=== PATIENT | female | born 1940 | race Caucasian/White ===

== ENCOUNTER → 2019-01-27 15:58 | Outpatient (CLI) | payer MEDICARE, SELFPAY ==
--- NOTE | 2019-01-27 | DI.RAD.S_ITS ---
PROCEDURE: XR HIP W PEL IF DONE LT 2V INDICATIONS: Pelvic Pain, clinically reported known fracture. TECHNIQUE: AP pelvis with lateral view(s) of the left hip(s). COMPARISON: [facility], CR, HIP 2V RIGHT, 01/10/2009, 10:01. FINDINGS: Bones: Fracture of the left superior and inferior pubic ramus. Soft tissue anchors projecting in the pubic bodies bilaterally. No suspicious bony lesions. Moderate bilateral hip degeneration. Lower lumbar spondylosis and facet arthropathy with partially visualized lateral curvature. Soft tissues: The visualized bowel gas pattern is normal. No suspicious soft tissue calcifications. IMPRESSION: Fractures of the left superior and inferior pubic ramus. Dictated by: Tyler Narvaez M.D. on 01/27/2019 at 17:01 Approved by: Tyler Narvaez M.D. on 01/27/2019 at 17:06
== END ==
PROVIDERS: PCP Specialist; Visit Provider Internal Medicine
DX: R10.2 Pelvic and perineal pain (principal); M16.0 Bilateral primary osteoarthritis of hip; S32.592D Other specified fracture of left pubis, subsequent encounter for fracture with routine healing
CPT/HCPCS: 73502

== ENCOUNTER → 2019-01-27 15:58 | Outpatient (CLI) | payer SELFPAY | DX: R10.2 Pelvic and perineal pain (principal); M16.0 Bilateral primary osteoarthritis of hip; S32.592D Other specified fracture of left pubis, subsequent encounter for fracture with routine healing ==

== ENCOUNTER 2021-09-23 18:44 | Emergency (ER) | payer MEDICARE, SELFPAY ==
[2021-09-23 19:00] VITALS: BP 111/61; PULSE 65; RESP 18; TEMP 36.6; O2SAT 97
--- NOTE | 2021-09-23 19:00 | DI.CT.S_ITS ---
PROCEDURE: CT HEAD/BRAIN WO CON INDICATIONS: fall TECHNIQUE: Noncontrast 4.5 mm thick angled axial sections acquired from the foramen magnum to the vertex, with coronal and sagittal reformats. For radiation dose reduction, the following was used: automated exposure control, adjustment of mA and/or kV according to patient size. COMPARISON: [facility], CT, HEAD WITHOUT CONTRAST, 10/22/2011, 15:13. FINDINGS: Image quality: Excellent. CSF spaces: Basal cisterns are patent. No extra-axial fluid collections. The ventricles are symmetric in size and shape. Brain: No intracranial bleeds or masses. There is cerebral volume loss for age, with resultant ventricular and sulcal prominence. There are periventricular and deep white matter chronic small vessel ischemic changes. There is intracranial internal carotid artery atherosclerosis. Skull and face: Small left posterior parietal subcutaneous hematoma and swelling. Calvarium and visualized facial bones appear intact, without suspicious lesions. Sinuses: Visualized sinuses and mastoids are clear. IMPRESSION: 1. No CT evidence of acute intracranial hemorrhage or chronic hematoma. 2. Age-appropriate cerebral cortical volume loss and chronic microvascular ischemic changes. 3. Small left posterior parietal soft tissue hematoma without underlying fracture. Dictated by: Kathy Laureano M.D. on 09/23/2021 at 19:33 Approved by: Kathy Laureano M.D. on 09/23/2021 at 19:35
--- NOTE | 2021-09-23 19:18 | DI.CT.S_ITS ---
PROCEDURE: CT CERVICAL SPINE WO CON INDICATIONS: fall, cervical midline pain TECHNIQUE: Noncontrast 3 mm thick sections acquired from the skull base to the T4 level. Sagittal and coronal reformats were then constructed. For radiation dose reduction, the following was used: automated exposure control, adjustment of mA and/or kV according to patient size. COMPARISON: [facility], CT, C-SPINE WITHOUT CONTRAST, 10/22/2011, 15:13. [facility], CT, CT HEAD/BRAIN WO CON, 09/23/2021, 19:05. FINDINGS: Image quality: Excellent. Bones: No fractures or dislocations. Visualized superior ribs are intact. Levoconvex cervical thoracic scoliotic curvature can be seen on the coronal images. There is minimal anterolisthesis seen at C3-C4 and minimal retrolisthesis seen at C4-C5. There is minimal anterolisthesis seen at C7-T1. Accentuated thoracic kyphosis is seen. Focal degenerative change is seen involving the C1-C2 interface anteriorly. There is at least moderate disc space narrowing at C3-C4, with moderate to severe disc space narrowing at C4-C5, C5-C6, and C6-C7. Sternotomy wires are partially seen. Soft tissues: Within the upper lobes, mild poorly defined/ground-glass opacities are seen. Atherosclerotic calcification is noted. Prevertebral soft tissues are normal in thickness. No paravertebral hematomas. No apical pneumothoraces. There is a right-sided pacer device. IMPRESSION: No acute fractures are seen. Multiple levels of prominent degenerative change can be seen. Mild poorly defined opacities are seen, including ground-glass opacities. Please correlate with infection, including COVID pneumonia. Differential diagnosis would also mild pulmonary edema, however. Incidental note is made of: Atherosclerotic calcification Right-sided pacer device Levoconvex cervical thoracic scoliotic curvature Dictated by: Phil Galeano M.D. on 09/23/2021 at 19:05 Approved by: hPil Galeano M.D. on 09/23/2021 at 19:08
--- NOTE | 2021-09-23 19:22 | ED.GENADULT ---
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 She states she was on the fairy and when the deck moved that she fell backward landing on the occiput. She had a ?big goose egg? but was able to get up, walk to her car and walk into the emergency department with minimal assistance. She appears to be at her baseline level of alertness. There is no abrasion or contusion. She initially had not complained of other pain but on physical exam she does note some midline cervical spine tenderness. She notes no recent chest pain, palpitations, dyspnea, vomiting, fevers, abdominal pain. She does have chronic diarrhea for which she takes gemfibrozil. Related Data Home Medications Medication Instructions Recorded Confirmed Betamethasone Dipropionate, 0.05 TP BID #0 10/22/11 (#DIPROLENE) Fluoxetine Hydrochloride (PROZAC) 30 mg PO QDAY #0 10/22/11 WARFARIN SODIUM (COUMADIN) 1.5 mg PO #0 10/22/11 atenolol 25 mg tablet 25 mg PO BID #0 10/22/11 atorvastatin 20 mg tablet (Lipitor) 20 mg PO HS #0 10/22/11 cetirizine 10 mg tablet 10 mg PO Q DAY #0 10/22/11 cholestyramine (with sugar) 4 gram 4 gm PO Q DAY #0 10/22/11 powder for susp in a packet (Questran) darifenacin 7.5 mg tablet,extended 7.5 mg PO Q DAY #0 10/22/11 release 24 hr (Enablex) estradiol 10 mcg vaginal tablet 10 mcg VG TWICE WEEKLY #0 10/22/11 (Vagifem) gemfibrozil 600 mg tablet 600 mg PO BIDAC #0 10/22/11 lisinopril 10 1 tab PO QDAY #0 10/22/11 mg-hydrochlorothiazide 12.5 mg tablet lorazepam 1 mg tablet 1 mg PO HSP #0 10/22/11 omeprazole 20 mg capsule,delayed 20 mg PO QDAY@0600 #0 10/22/11 release ondansetron HCl 4 mg tablet 4 mg PO Q8HP #0 10/22/11 Allergies Allergy/AdvReac Type Severity Reaction Status Date / Time CODEINE Allergy Unknown Uncoded 03/30/19 12:13 NIACIN Allergy Unknown Uncoded 03/30/19 12:13 SULFA Allergy Unknown Uncoded 03/30/19 12:13 Review of Systems Review of Systems Narrative: Remainder of complete review of systems is otherwise unremarkable except for that included in the HPI. Patient History Medical History Anticoagulated on Coumadin Atrial fibrillation Depression Hyperlipidemia Hypertension Tetralogy of Fallot Exam Initial Vital Signs Initial Vital Signs: Vital Signs Temperature 97.9 F 09/23/21 19:00 Pulse Rate 65 09/23/21 19:00 Respiratory Rate 18 09/23/21 19:00 Blood Pressure 111/61 09/23/21 19:00 Pulse Oximetry 97 09/23/21 19:00 General: Very frail appearing 81-year-old woman and no acute distress. Able to participate with complete exam and speak in fluent sentences HEENT: Moist mucous membranes, normal sclera with reactive pupils, healing contusion over the left side of her forehead just above the brow with old bruising over the malar eminence left side. Minor contusion to the posterior portion of her scalp without any abrasions or bleeding. No tenderness. No tenderness with skull manipulation to suggest skull fracture Neck: No JVD, minor tenderness midline to palpation C1 234 Respiratory: Lungs are clear to auscultation, no wheezing no rales no rhonchi. Full and symmetrical air movement Chest: No tenderness with palpation of thoracic spine or chest wall. No clavicular tenderness Cardiac: Irregular with 5/6 systolic murmur Abdomen: Soft, cachectic, nontender, good bowel tones, no flank pain Skin: Frail, Warm and dry, no rashes Neurologic: Grossly neurologically intact with no obvious asymmetries or abnormalities Extremities: No trauma, well perfused Psych: Cooperative, slightly forgetful, poor overall insight Course Orders Ordered: ED Orders 09/23/21 19:00 CT head/brain wo con Stat 09/23/21 19:18 CT cervical spine wo con Stat 09/23/21 19:19 COVID19 -Nasal swab/Pre-Proc Stat 09/23/21 19:30 Complete Blood Count AUTO DIFF Stat Comprehensive Metabolic Panel Stat Prothrombin Time INR Stat Troponin I Stat Vital Signs Vital signs: Vital Signs - 8 hr 09/23/21 19:00 Temperature 97.9 F Pulse Rate 65 Respiratory Rate 18 Blood Pressure 111/61 Pulse Oximetry 97 Medical Decision Making Lab Data Result diagrams: 09/23/21 19:30 09/23/21 19:30 Labs: Lab Results 09/23/21 09/23/21 09/23/21 Range/Units 19:30 19:30 19:30 WBC 4.8 (4.5-11.0) X10^3/uL RBC 3.45 L (4.0-5.2) X10^6/uL Hgb 9.8 L (12.0-16.0) g/dL Hct 30.9 L (36-46) % MCV 89.6 (80-100) fL MCH 28.5 (26-34) PG MCHC 31.9 (30-36) % RDW 15.4 H (11.6-14.8) % Plt Count 344 (150-400) X10^3/uL Neut % (Auto) 52.6 (50-75) % Lymph % (Auto) 30.3 (25-40) % [place] % (Auto) 12.5 (3-14) % Eos % (Auto) 3.3 (2-4) % Baso % (Auto) 1.3 (0-2) % Neut # (Auto) 2500 (7187-8920) /uL Lymph # (Auto) 1500 (5563-3970) /uL [place] # (Auto) 600 (0-900) /uL Eos # (Auto) 200 (0-450) /uL Baso # (Auto) 100 (0-100) /uL PT 23.7 H (10.1-12.7) SECONDS INR 2.1 H (0.9-1.3) Sodium 136 L (137-145) mmol/L Potassium 4.9 (3.4-5.1) mmol/L Chloride 104 (98-107) mmol/L Carbon Dioxide 21 L (22-32) mmol/L BUN 18 H (7-17) mg/dL Creatinine 0.92 (0.52-1.04) mg/dL Estimated GFR 58.7 L (>60) mL/min BUN/Creatinine Ratio 19.6 (6-22) Glucose 82 (80-110) mg/dL Calcium 10.3 H (8.4-10.2) mg/dL Total Bilirubin 0.7 (0.2-1.3) mg/dL AST 33 (14-36) IU/L ALT 14 (<35) IU/L Alkaline Phosphatase 125 (38-126) U/L Troponin I 0.027 (0.01-0.034) ng/mL Total Protein 7.5 (6.3-8.2) g/dL Albumin 4.4 (3.5-5.0) g/dL Globulin 3.1 (1.7-4.1) g/dL Albumin/Globulin Ratio 1.4 (1.0-2.8) Imaging Data CT - cervical spine: Radiologist's Impression: FINDINGS:? Image quality:? Excellent.? ? Bones:? No fractures or dislocations.? Visualized superior ribs are intact.? ? Levoconvex cervical thoracic scoliotic curvature can be seen on the coronal images.? There is minimal anterolisthesis seen at C3-C4 and minimal retrolisthesis seen at C4-C5.? There is minimal anterolisthesis seen at C7-T1.? Accentuated thoracic kyphosis is seen. ? Focal degenerative change is seen involving the C1-C2 interface anteriorly. ? There is at least moderate disc space narrowing at C3-C4, with moderate to severe disc space narrowing at C4-C5, C5-C6, and C6-C7. ? Sternotomy wires are partially seen. ? Soft tissues:? Within the upper lobes, mild poorly defined/ground-glass opacities are seen. ? Atherosclerotic calcification is noted.? ? Prevertebral soft tissues are normal in thickness.? No paravertebral hematomas.? No apical pneumothoraces.? There is a right-sided pacer device. ? ? IMPRESSION:? No acute fractures are seen. ? Multiple levels of prominent degenerative change can be seen. ? Mild poorly defined opacities are seen, including ground-glass opacities.? Please correlate with infection, including COVID pneumonia.? Differential diagnosis would also mild pulmonary edema, however. ? ? ? Incidental note is made of: Atherosclerotic calcification Right-sided pacer device Levoconvex cervical thoracic scoliotic curvature ? Dictated by: Phil Galeano M.D. on 09/23/2021 at 19:05 ? ? CT scan - head: Radiologist's Impression: FINDINGS:? Image quality:? Excellent.? ? CSF spaces:? Basal cisterns are patent.? No extra-axial fluid collections.? The ventricles are symmetric in size and shape.? ? Brain:? No intracranial bleeds or masses.? There is cerebral volume loss for age, with resultant ventricular and sulcal prominence.? There are periventricular and deep white matter chronic small vessel ischemic changes.? There is intracranial internal carotid artery atherosclerosis.? ? Skull and face:? Small left posterior parietal subcutaneous hematoma and swelling.? Calvarium and visualized facial bones appear intact, without suspicious lesions.? ? Sinuses:? Visualized sinuses and mastoids are clear.? ? IMPRESSION:? ? 1. No CT evidence of acute intracranial hemorrhage or chronic hematoma. ? 2. Age-appropriate cerebral cortical volume loss and chronic microvascular ischemic changes.? ? 3. Small left posterior parietal soft tissue hematoma without underlying fracture.? ? ? Dictated by: Kathy Laureano M.D. on 09/23/2021 at 19:33 ? ? Approved by: Kathy Laureano M.D. on 09/23/2021 at 19:35 ? ? ? ADDENDUM: ? This case was reviewed at the request of Dr. Alexa Harris and discussed by telephone at 7:14 p.m. [place] time on September 23, 2021.? ? Concordant findings discussed. ? Along the posterior aspect of the right posterior fossa, as on series 2, image 9, there is thickened tentorium, yet without hemorrhage.? This is better seen on the accompanying sagittal and coronal images through the same area. ? ? Dictated by: Phil Galeano M.D. on 09/23/2021 at 19:14 ? ? [facility] Narrative Medical decision making narrative: 81-year-old woman anticoagulated on Coumadin with a fall hitting the back side of her head with the small hematoma but no intracranial bleed or bony injury of the skull or cervical spine. She lives in the [facility] and is coming over to be available for an appointment at [place] tomorrow regarding a head injury with bleed a month ago. Will make the CT scans done today available to [facility] should the need them for her outpatient follow-up tomorrow. Labs are reassuring, patient is doing well complaining of no pain and is safe for discharge home Discharge Plan Departure Patient Disposition: Home Clinical Impression: Fall Qualifiers: Encounter type: initial encounter Qualified Code(s): W19.XXXA - Unspecified fall, initial encounter Contusion of head Qualifiers: Encounter type: initial encounter Contusion of head detail: scalp Qualified Code(s): S00.03XA - Contusion of scalp, initial encounter Instructions: DI for Contusion Activity Restrictions/Additional Instructions: Thank you for coming in today I am very glad you did not hurt herself further with your fall today. You do need to be extremely cautious with falling. The CT scans of your head and cervical spine that were done today have been sent down to [facility] if your or outpatient doctor would like to review them. I wish you the best Prescriptions: No Action WARFARIN SODIUM (COUMADIN) 1.5 mg PO Qty: 0 0RF ondansetron HCl 4 MG tablet 4 mg PO Q8HP Qty: 0 0RF Fluoxetine Hydrochloride (PROZAC) 30 mg PO QDAY Qty: 0 0RF gemfibrozil 600 MG tablet 600 mg PO BIDAC Qty: 0 0RF cholestyramine (with sugar) [Questran] 4 GM powder in packet 4 gm PO Q DAY Qty: 0 0RF atenolol 25 MG tablet 25 mg PO BID Qty: 0 0RF darifenacin [Enablex] 7.5 MG tablet extended release 24 hr 7.5 mg PO Q DAY Qty: 0 0RF Betamethasone Dipropionate, (#DIPROLENE) 0.05 TP BID Qty: 0 0RF cetirizine 10 MG tablet 10 mg PO Q DAY Qty: 0 0RF lisinopril-hydrochlorothiazide 10 MG/12.5 MG tablet 1 tab PO QDAY Qty: 0 0RF estradiol [Vagifem] 10 MCG tablet 10 mcg VG TWICE WEEKLY Qty: 0 0RF atorvastatin [Lipitor] 20 MG tablet 20 mg PO HS Qty: 0 0RF omeprazole 20 MG capsule,delayed release(DR/EC) 20 mg PO QDAY@0600 Qty: 0 0RF lorazepam 1 MG tablet 1 mg PO HSP Qty: 0 0RF Referrals: Tona Malin MD [Primary Care Provider] -
[2021-09-23 19:30] VITALS: BP 120/71; PULSE 69; RESP 18; O2SAT 95
[2021-09-23 19:41] LABS: Add Manual Diff / Slide Review NO; Basophils Absolute Auto 100 /uL (0-100); Basophils Percent Auto 1.3 % (0-2); Eosinophils Absolute Auto 200 /uL (0-450); Eosinophils Percent Auto 3.3 % (2-4); Hematocrit 30.9 % (36-46); Hemoglobin 9.8 g/dL (12.0-16.0); Lymphocytes Absolute Auto 1500 /uL (1100-4500); Lymphocytes Percent Auto 30.3 % (25-40); Mean Corpuscular HGB Conc 31.9 % (30-36); Mean Corpuscular Hemoglobin 28.5 PG (26-34); Mean Corpuscular Volume 89.6 fL (80-100); Monocytes Absolute Auto 600 /uL (0-900); Monocytes Percent Auto 12.5 % (3-14); Neutrophils Absolute Auto 2500 /uL (1500-7000); Neutrophils Percent Auto 52.6 % (50-75); Platelet Count 344 X10^3/uL (150-400); Red Blood Cell Count 3.45 X10^6/uL (4.0-5.2); Red Cell Distribution Width 15.4 % (11.6-14.8); White Blood Cell Count 4.8 X10^3/uL (4.5-11.0)
[2021-09-23 19:49] LABS: INR 2.1 (0.9-1.3); Prothrombin Time 23.7 SECONDS (10.1-12.7)
[2021-09-23 19:53] LABS: Alanine Aminotransferase 14 IU/L (<35); Albumin 4.4 g/dL (3.5-5.0); Albumin Globulin Ratio 1.4 (1.0-2.8); Alkaline Phosphatase 125 U/L (38-126); Aspartate Aminotransferase 33 IU/L (14-36); BUN Creatinine Ratio 19.6 (6-22); Bilirubin Total 0.7 mg/dL (0.2-1.3); Blood Urea Nitrogen 18 mg/dL (7-17); Calcium 10.3 mg/dL (8.4-10.2); Carbon Dioxide 21 mmol/L (22-32); Chloride 104 mmol/L (98-107); Estimated Glomerular Filt Rate 58.7 mL/min (>60); Globulin 3.1 g/dL (1.7-4.1); Glucose 82 mg/dL (80-110); HEMOLYSIS < 15 (0-50); Potassium 4.9 mmol/L (3.4-5.1); Sodium 136 mmol/L (137-145); Total Protein 7.5 g/dL (6.3-8.2)
[2021-09-23 20:00] VITALS: BP 116/64; PULSE 69; RESP 18; O2SAT 95
[2021-09-23 20:05] LABS: Troponin I 0.027 ng/mL (0.01-0.034)
[2021-09-23 20:30] VITALS: BP 115/65; PULSE 69; RESP 18; O2SAT 94
== END 2021-09-23 21:07 | disposition home or self-care (01) ==
PROVIDERS: Emergency Provider Emergency Medicine; PCP Specialist
DX: S00.03XA Contusion of scalp, initial encounter (principal); Z79.01 Long term (current) use of anticoagulants; W18.30XA Fall on same level, unspecified, initial encounter; Y92.814 Boat as the place of occurrence of the external cause
CPT/HCPCS: 36415; 70450; 72125; 80053; 84484; 85025; 85610; 99284